=== PATIENT | male | born 1985 | race Caucasian/White ===

== ENCOUNTER 2019-08-08 17:03 | Emergency (ER) | payer MEDICAID ==
[~2019-08-08] VITALS: Ht 180.3 cm; Wt 65.9 kg
[2019-08-08] MEDS ORDERED: ChlordiazePOXIDE HCL 25 MG CAPSULE PO ONE (18:15)
[2019-08-08 18:26] VITALS: BP 99/52
== END 2019-08-08 18:43 | disposition home or self-care (01) ==
LOC: EMS 17:04
DX: F15.10 Other stimulant abuse, uncomplicated (principal); F11.10 Opioid abuse, uncomplicated; F17.290 Nicotine dependence, other tobacco product, uncomplicated

== ENCOUNTER 2019-08-09 16:27 | Emergency (ER) | payer MEDICAID ==
[~2019-08-09] VITALS: Ht 180.3 cm; Wt 65.9 kg
[2019-08-09 17:28] LABS: BASOPHILS % (AUTO) 0.2 % (0.0-2.0); EOSINOPHILS % (AUTO) 0.6 % (1.0-6.0); HEMATOCRIT 42.4 % (41-53); HEMOGLOBIN 14.1 g/dL (13.5-17.5); LYMPHOCYTES # (AUTO) 1.4 K/uL (1.0-4.8); LYMPHOCYTES % (AUTO) 18.4 % (22.0-44.0); MEAN CORPUSCULAR HEMOGLOBIN 27.9 pg (26.0-34.0); MEAN CORPUSCULAR HGB CONC 33.1 G/dL (31.0-37.0); MEAN CORPUSCULAR VOLUME 84 fL (80-100); MONOCYTES # (AUTO) 0.5 K/uL (0.1-1.0); MONOCYTES % (AUTO) 7.3 % (2.0-9.0); NEUTROPHILS # (AUTO) 5.4 K/uL (1.8-7.7); NEUTROPHILS % (AUTO) 73.5 % (40.0-70.0); PLATELET COUNT (AUTO) 220 K/uL (150-450); RED BLOOD CELL COUNT(AUTO) 5.04 MIL/uL (4.50-5.90); RED CELL DISTRIBUTION WIDTH 14.6 % (11.5-14.5)
[2019-08-09 17:37] LABS: ANION GAP 10 mmol/L (8-16); CALCIUM, TOTAL 9.7 mg/dL (8.8-10.5); CARBON DIOXIDE 28 mmol/L (22-29); CHLORIDE 104 mmol/L (98-107); CREATININE 0.82 mg/dL (0.60-1.30); GLOMERULAR FILTR. RATE CALC > 60 mL/min (>60); GLUCOSE,RANDOM 113 mg/dL (70-110); POTASSIUM 3.9 mmol/L (3.5-5.1); SODIUM SERUM 142 mmol/L (136-145); UREA NITROGEN, BLOOD 5 mg/dL (7-18)
[2019-08-09 17:43] LABS: ALANINE AMINOTRANSFERASE 21 U/L (12-78); ALBUMIN 3.9 g/dL (3.4-5.0); ALKALINE PHOSPHATASE 86 U/L (46-116); ASPARTATE AMINOTRANSFERASE 19 U/L (15-37); BILIRUBIN,TOTAL 0.3 mg/dL (0.1-1.0); TOTAL PROTEIN, SERUM 8.2 g/dL (6.4-8.2)
[2019-08-09 18:10] VITALS: BP 128/70
== END 2019-08-09 18:21 | disposition home or self-care (01) ==
LOC: EMS 16:28
DX: F15.20 Other stimulant dependence, uncomplicated (principal); F11.20 Opioid dependence, uncomplicated; R11.2 Nausea with vomiting, unspecified; F17.290 Nicotine dependence, other tobacco product, uncomplicated
CPT/HCPCS: 36415; 80053; 85025; 99283; G0480

== ENCOUNTER 2019-08-15 15:49 | Emergency (ER) | payer MEDICAID ==
[~2019-08-15] VITALS: Ht 180.3 cm; Wt 65.9 kg
[2019-08-15 16:33] LABS: BASOPHILS % (AUTO) 0.4 % (0.0-2.0); EOSINOPHILS % (AUTO) 1.6 % (1.0-6.0); HEMATOCRIT 42.5 % (41-53); LYMPHOCYTES # (AUTO) 2.3 K/uL (1.0-4.8); LYMPHOCYTES % (AUTO) 25.9 % (22.0-44.0); MEAN CORPUSCULAR HEMOGLOBIN 27.8 pg (26.0-34.0); MEAN CORPUSCULAR HGB CONC 32.9 G/dL (31.0-37.0); MEAN CORPUSCULAR VOLUME 85 fL (80-100); MONOCYTES # (AUTO) 0.6 K/uL (0.1-1.0); NEUTROPHILS # (AUTO) 5.9 K/uL (1.8-7.7); NEUTROPHILS % (AUTO) 65.1 % (40.0-70.0); PLATELET COUNT (AUTO) 263 K/uL (150-450); RED BLOOD CELL COUNT(AUTO) 5.02 MIL/uL (4.50-5.90); RED CELL DISTRIBUTION WIDTH 14.2 % (11.5-14.5)
[2019-08-15 16:49] LABS: ANION GAP 6 mmol/L (8-16); CALCIUM, TOTAL 8.5 mg/dL (8.8-10.5); CARBON DIOXIDE 29 mmol/L (22-29); CHLORIDE 107 mmol/L (98-107); CREATININE 0.88 mg/dL (0.60-1.30); GLOMERULAR FILTR. RATE CALC > 60 mL/min (>60); GLUCOSE,RANDOM 103 mg/dL (70-110); SODIUM SERUM 142 mmol/L (136-145); UREA NITROGEN, BLOOD 9 mg/dL (7-18)
[2019-08-15 16:55] LABS: ALANINE AMINOTRANSFERASE 20 U/L (12-78); ALBUMIN 3.8 g/dL (3.4-5.0); ALKALINE PHOSPHATASE 74 U/L (46-116); ASPARTATE AMINOTRANSFERASE 16 U/L (15-37); BILIRUBIN,TOTAL 0.4 mg/dL (0.1-1.0); TOTAL PROTEIN, SERUM 7.5 g/dL (6.4-8.2)
[2019-08-15 18:34] LABS: AMPHET/METH SCREEN,URINE NEGATIVE (NEGATIVE); BARBITURATE SCREEN, URINE NEGATIVE (NEGATIVE); BENZODIAZEPINES SCREEN,URINE POSITIVE (NEGATIVE); CANNABINOID SCREEN,URINE NEGATIVE (NEGATIVE); COCAINE SCREEN,URINE NEGATIVE (NEGATIVE); METHADONE SCREEN, URINE NEGATIVE (NEGATIVE); OPIATE SCREEN,URINE NEGATIVE (NEGATIVE)
[2019-08-15 18:38] LABS: PHENCYCLIDINE SCREEN,URINE NEGATIVE (NEGATIVE)
[2019-08-15 20:23] VITALS: BP 99/68
== END 2019-08-15 20:15 | disposition home or self-care (01) ==
LOC: EMS 15:49
DX: G47.00 Insomnia, unspecified (principal); F11.20 Opioid dependence, uncomplicated; F15.20 Other stimulant dependence, uncomplicated
CPT/HCPCS: 36415; 80053; 80307; 85025; 99283; G0480